=== PATIENT | female | born 1970 | race Caucasian/White ===

== ENCOUNTER 2016-09-18 09:26 | Day surgery (SDC) | payer BC ==
[~2016-09-18] VITALS: Ht 167.6 cm; Wt 94.7 kg
[2016-09-18 10:11] VITALS: Ht 167.6 cm; Wt 94.7 kg
[2016-09-18] MEDS ORDERED: FENO134C PO (10:21)
[2016-09-18] MEDS ORDERED: METF1000 PO (10:21)
[2016-09-18] MEDS ORDERED: RANI15SY GTB (10:21)
[2016-09-18] MEDS ORDERED: BUPR300T36 PO (10:21)
[2016-09-18] MEDS ORDERED: GLYB5TAB3 PO (10:21)
[2016-09-18] MEDS ORDERED: AMLO-147 PO (10:21)
[2016-09-18] MEDS ORDERED: FOLI1POW MC (10:22)
[2016-09-18] MEDS ORDERED: SIMV20TA6 PO (10:22)
[2016-09-18] MEDS ORDERED: [UNRECOGNIZED DRUG - CODE] PO (10:22)
[2016-09-18] MEDS ORDERED: PROP10TA6 PO (10:22)
[2016-09-18] MEDS ORDERED: LOSA100T7 PO (10:22)
[2016-09-18 10:30] VITALS: BP 140/84; PULSE 75; RESP 19
[2016-09-18] MEDS ORDERED: PROPOFOL 40 ML ONE (10:31)
[2016-09-18] MEDS ORDERED: MIDAZOLAM 1 MG/ML 2 ML INJ ONE (10:31)
[2016-09-18] MEDS ORDERED: LIDOCAINE 2% (SDV) 5 ML INJ ONE (10:31)
[2016-09-18 11:29] VITALS: BP 143/82; RESP 20
--- NOTE | 2016-09-18 11:31 | GILP ---
DATE OF PROCEDURE: 09/18/2016 PROCEDURES: 1. Esophagogastroduodenoscopy with biopsy. 2. Colonoscopy with biopsy. INDICATION: A 46-year-old female with a history of diabetes mellitus undergoing this procedure for heartburn and abdominal pain for the last few months and colonoscopy for change in bowel habits. INFORMED CONSENT: The risks of the procedure, related complications, anesthetic risks, alternatives discussed and informed consent was obtained. DESCRIPTION OF PROCEDURE: The patient was brought to the GI lab, sedated by Dr. Reyes. After optima l sedation, scope was passed with much ease into esophagus which was grossly within normal limits. Z line was at 38 cm. There was an inflammatory polyp near the Z line almost 8 mm in diameter. Scop e was in the stomach, gastritis identified. Three to 4 biopsies obtained to rule out H. pylo ri infection. Duodenum first and second part including ampulla appeared normal. Retroflexion done in the stomach which was grossly normal except for the polyp which was identified through the fundal area on retroversion. Scope was straightened out, polyp was biopsied, 30 to 40% of it was removed and it started oozing. Waited for 5 minutes with endoscopic tamponade bleeding had stopped so scope was removed with good patient tolerance. IMPRESSION: 1. Inflammatory polyp at GE junction 7 to 8 mm in diameter. 2. Z line regular at 38 cm. 3. Chronic gastritis. 4. Normal duodenum. PLAN: Review histopathology. COLONOSCOPY: Scope was passed with much ease into rectum, advanced through sigmoid, descending, tra nsverse colon all the way up to presacral area. The cecum was completely collapse at this point. We used the biopsy forceps in order to place the IC valve and 70 to 80% of the cecum was visualized, w hich was grossly within normal limits. Appendix was seen. While coming out, mucosa thoroughly insp ected. The rest of the colon was normal. Random biopsies obtained to rule out microscopic or colla genous colitis. Clarity was good. Cleanliness was adequate except near the right hepatic flexure w here there was stool which precluded visibility by 10% to 15%. IMPRESSION: 1. Normal findings all the way into the cecum. 2. Hemorrhoids, internal and external. 3. Negative all the way into the cecum. PLAN: Review the histopathology. Dictated By: JEAN PAUL FONTAINE/MARIVEL Conf#: [id number] DID#: [id number] CC: JEAN PAUL SANCHEZ MD;*End*
== END 2016-09-18 18:00 | disposition home or self-care (01) ==
LOC: GIL 09:26
PROVIDERS: ATTEND Internal Medicine Gastroenterology
DX: R19.4 Change in bowel habit (principal); K29.50 Unspecified chronic gastritis without bleeding; K31.7 Polyp of stomach and duodenum; I10 Essential (primary) hypertension; E11.9 Type 2 diabetes mellitus without complications
CPT/HCPCS: 43239; 45380; 82962; 84703; 88305; 88312; 88313; J2250; Z7610